=== PATIENT | male | born 1970 | race American Indian/Alaskan Native ===

== ENCOUNTER 2020-04-27 07:07 | Outpatient (CLI) | payer BC ==
--- NOTE | 2020-04-27 08:06 | Ultrasound Report ---
ULTRASOUND ABDOMEN, COMPLETE INDICATION: Chronic kidney disease. COMPARISON: No relevant prior imaging study available. FINDINGS: Pancreas: No significant abnormality. Abdominal Aorta: No significant abnormality. IVC: No significant abnormality. Liver: The liver measures 16.9 cm in length. No significant abnormality. Normal hepatopedal blood fl ow in the main portal vein. Gallbladder: No significant abnormality. Bile ducts: No significant abnormality. Common bile duct measures 2.9 mm. Kidneys: Right: 12 cm in length. No significant abnormality. Left: 9.2 cm in length. No significa nt abnormality. Spleen: No significant abnormality. Free fluid: None. Additional Findings: None. IMPRESSION: No sonographic abnormality of the abdomen. Signer Name: Steve Gao Jr, MD Signed: 04/27/2020 8:02 AM Workstation Name: [id number]
== END 2020-04-27 07:08 | disposition home or self-care (01) ==
LOC: US 07:07
PROVIDERS: ATTEND Internal Medicine
DX: N18.30 Chronic kidney disease, stage 3 unspecified (principal)
CPT/HCPCS: 76700

== ENCOUNTER 2020-09-21 11:57 | Outpatient (CLI) | payer BC ==
--- NOTE | 2020-09-21 13:37 | XRay Report ---
CHEST 2 VIEWS INDICATION / CLINICAL INFORMATION: MAIN. COMPARISON: None available. FINDINGS: SUPPORT DEVICES: None. HEART / MEDIASTINUM: No significant abnormality. LUNGS / PLEURA: No significant pulmonary or pleural abnormality. No pneumothorax. ADDITIONAL FINDINGS: No significant additional findings. IMPRESSION: 1. No acute findings. Signer Name: Srinivas Ho MD Signed: 09/21/2020 1:33 PM Workstation Name: [id number]
== END 2020-09-21 11:58 | disposition home or self-care (01) ==
LOC: XRAY 11:57
PROVIDERS: ATTEND Specialist
DX: D86.2 Sarcoidosis of lung with sarcoidosis of lymph nodes (principal); D86.3 Sarcoidosis of skin
CPT/HCPCS: 71046